=== PATIENT | female | born 1975 | race Caucasian/White ===

== ENCOUNTER 2024-12-13 13:17 | Emergency (ER) | payer OTHER ==
[~2024-12-13] VITALS: Ht 172.7 cm; Wt 79.6 kg
[2024-12-13 13:44] LABS: BASOPHILS 0.6 % (0-2); EOSINOPHILS 0.5 % (0-6); HEMATOCRIT 44.1 % (35.0-50.0); HEMOGLOBIN 14.9 g/dL (12.0-18.0); LYMPHOCYTES 54.2 % (24-44); MCH 29.1 (27-36); MCHC 33.7 g/dl (30-36); MCV 86.4 fl (81-99); MONOCYTES 9.2 % (0-12); NEUTROPHILS 35.5 % (39-80); PLATELET COUNT 94 K/uL (140-440); RDW 13.8 (10.5-15.0)
[2024-12-13] MEDS ORDERED: SODIUM CHLORIDE 0.9% 1,000 ML IV PRN (13:45)
[2024-12-13] MEDS ORDERED: KETOROLAC TROMETHAMINE 15 MG/ML VIAL IV ONE (13:45)
[2024-12-13 14:11] LABS: ALBUMIN 3.8 g/dL (3.4-5.0); ALBUMIN/GLOBULIN RATIO 1.31 (1.1-2.4); ALKALINE PHOSPHATASE 111 U/L (46-116); ALT (SGPT) 23 U/L (14-59); ANION GAP 15.7 (7-21); AST (SGOT) 22 U/L (15-37); BILIRUBIN, TOTAL 0.6 mg/dL (0.2-1.0); BUN/CREATININE RATIO 15.62 (6.0-28.6); CALCIUM 8.8 mg/dL (8.5-10.1); CARBON DIOXIDE 24 mmol/L (21-32); CHLORIDE 108 mmol/L (98-107); CREATININE, SERUM 0.64 mg/dL (0.55-1.02); GLOMERULAR FILTRATION RATE,EST 107 mL/min (>60); POTASSIUM 3.7 mmol/L (3.5-5.1); PROTEIN, TOTAL 6.7 g/dL (6.4-8.2); UREA NITROGEN 10 mg/dL (7-18)
[2024-12-13 14:18] LABS: CORONAVIRUS COVID-19 AG NEGATIVE (NEGATIVE); INFLUENZA A AG NEGATIVE (NEGATIVE); INFLUENZA B AG NEGATIVE (NEGATIVE)
[2024-12-13 14:32] LABS: TSH, 3RD GENERATION <0.007 uIU/mL (0.358-3.740)
[2024-12-13 15:02] LABS: BILIRUBIN, URINE NEGATIVE (negative); BLOOD/HGB, URINE NEGATIVE (Negative); KETONE, URINE TRACE (Negative); LEUK ESTERASE, URINE NEGATIVE (negative); NITRITE, URINE NEGATIVE (negative)
[2024-12-13] MEDS ORDERED: METHIMAZOLE5 MG PO (15:33)
[2024-12-13 15:40] VITALS: BP 165/88
--- NOTE | 2024-12-15 10:48 | EKG ---
[facility] [address] [place], [place] [address] Signed Normal sinus rhythm Right atrial enlargement Septal infarct , age undetermined Abnormal ECG No previous ECGs available Confirmed by Kirk Ramos MD ([id number]) on 12/15/2024 10:48:35 AM Electronically Signed By: KIRK RAMOS MD 12/15/24 1048 PATIENT NAME: NITA TEJDEA Electrocardiogram DATE OF : 71 PHYSICIAN: KIRK RAMOS MD REPORT #: [id number] REPORT IS CONFIDENTIAL AND NOT TO BE RELEASED WITHOUT AUTHORIZATION
[2024-12-16 02:11] LABS: THYROXINE FREE 3.2 ng/dL (0.9-1.7)
== END 2024-12-13 15:40 | disposition home or self-care (01) ==
LOC: ED 13:17
PROVIDERS: Emergency Medicine
DX: J06.9 Acute upper respiratory infection, unspecified (principal); E05.90 Thyrotoxicosis, unspecified without thyrotoxic crisis or storm
CPT/HCPCS: 36415; 71045; 80053; 81003; 84439; 84443; 85025; 87502; 93005; 93010; 96374; 99284-25; J1885; J7030; U0002